=== PATIENT | female | born 1945 | race Hispanic/Latino ===

== ENCOUNTER → 2019-01-16 | Outpatient (CLI) | payer OTHER ==
[~2019-01-16] MED LIST: LEVEMIR100 UNIT/2; NOVOLOG100 UNIT/2; Z.0.AMARYL2 MG; Z.0.GLUCOPHAGE1000 M; Z.0.PRAVASTATIN SOD4
--- NOTE | 2019-01-22 12:53 | Diagnostic Imaging Report ---
#[id number] - MGSCRBIL #BILATERAL DIGITAL SCREENING MAMMOGRAM WITH CAD: 01/16/2019 CLINICAL: Routine screening. Comparison is made to exam dated: 08/25/2016 mammogram - [facility]. There are scattered fibroglandular elements in both breasts. Current study was also evaluated with a Computer Aided Detection (CAD) system. There are benign vascular calcifications and calcifications in both breasts. No significant masses, calcifications, or other findings are seen in either breast. There has been no significant interval change. IMPRESSION: BENIGN There is no mammographic evidence of malignancy. A 1 year screening mammogram is recommended. The patient will be notified by letter of the results. ADAIR WEBB M.D., mc/jennifer:01/22/2019 10:56:31 Waste Treatment Operator: Lory VICTORIA(Asha)(Lynnette), [facility] letter sent: Normal Exam Mammogram BI-RADS: 2 Benign
== END ==
LOC: MAMMO 09:21
PROVIDERS: ATTEND Internal Medicine
DX: Z12.31 Encounter for screening mammogram for malignant neoplasm of breast (principal)
CPT/HCPCS: 77067

== ENCOUNTER 2019-01-22 13:02 | Emergency (ER) | payer MEDICARE, OTHER ==
[~2019-01-22] VITALS: Ht 157.5 cm; Wt 72.6 kg
--- OUTSIDE RECORDS SUMMARY | 2019-01-22 13:04 | XMS REPORT ---
Author Author [facility] Address Unknown Phone Unavailable Care Team Providers Care Progress Clerk Name Role Phone Lynnette WALDRON Unavailable Unavailable Problems This patient has no known problems. Allergies, Adverse Reactions, Alerts This patient has no known allergies or adverse reactions. Medications This patient has no known medications. Results Test Description Test Time Test Comments Text Results Atomic Results Result Comments MAMMOGRAPHY DIGITAL SCR BILAT 2019-01-16 10:29:00 [place] [address] Patient Name: PIPPA MORA MR #: [id number] : 1945 Age/Sex: 73/F Req #: [id number] [facility] Physician: Ordered by: ERIK WALDRON MD Report #: [id number] Location: MAMMO Room/Bed: Procedure: [id number] MG/MAMMOGRAPHY DIGITAL SCR BILAT Exam Date: 01/16/19 Exam Time: 0936 REPORT STATUS: Signed #[id number] - MGSCRBIL #BILATERAL DIGITAL SCREENING MAMMOGRAM WITH CAD: 01/16/2019 CLINICAL: Routine screening. Comparison is made to exam dated: 08/25/2016 mammogram - [facility]. There are scattered fibroglandular elements in both breasts. Current study was also evaluated with a Computer Aided Detection (CAD) system. There are benign vascular calcifications and calcifications in both breasts. No significant masses, calcifications, or other findings are seen in either breast. There has been no significant interval change. IMPRESSION: BENIGN There is no mammographic evidence of malignancy. A 1 year screening mammogram is recommended. The patient will be notified by letter of the results. ADAIR WEBB M.D., mc/laney:01/22/2019 10:56:31 Tooling Supervisor: Lory VICTORIA(Asha)(Lynnette), [facility] letter sent: Normal Exam Mammogram BI-RADS: 2 Benign Dictated By: LEANDRO WEBB MD 1056 Transcribed By: LANEY on 01/22/19 1056 COPY TO: ERIK WALDRON MD
[2019-01-22] MEDS ORDERED: SODIUM CHLORIDE 0.9% 1000ML 1,000 ML IV STA (14:09)
[2019-01-22] MEDS ORDERED: ASPIRIN 81 MG CHEW TAB PO ONE (14:15)
[2019-01-22 14:42] LABS: BASOPHILS % 0.3 % (0.0-1.0); EOSINOPHILS # (AUTO) 0.1 (0.0-0.4); EOSINOPHILS % 1.8 % (0.0-6.0); HEMOGLOBIN 12.3 g/dL (12.0-16.0); LYMPHOCYTES # (AUTO) 2.1 (1.0-3.2); LYMPHOCYTES % 30.7 % (18.0-39.1); MEAN CORPUSCULAR HEMOGLOBIN 30.8 pg (28-32); MEAN CORPUSCULAR HGB CONC 33.2 g/dL (31-35); MEAN CORPUSCULAR VOLUME 92.5 fL (81-99); MONOCYTES # (AUTO) 0.5 (0.2-0.8); MONOCYTES % 6.9 % (4.4-11.3); NEUTROPHILS # (AUTO) 4.1 (2.1-6.9); PLATELET COUNT 273 x10e3/uL (140-360); RED CELL DISTRIBUTION WIDTH 13.2 % (11.7-14.4)
[2019-01-22 14:45] LABS: BILIRUBIN,URINE NEGATIVE (NEGATIVE); CLARITY,URINE SL CLOUDY (CLEAR); COLOR,URINE YELLOW (YELLOW); KETONES,URINE NEGATIVE (NEGATIVE); LEUKOCYTE ESTERASE ,URINE NEGATIVE (NEGATIVE); NITRITE,URINE NEGATIVE (NEGATIVE); PROTEIN,URINE DIPSTICK NEGATIVE (NEGATIVE); URINE UROBILINOGEN 1 mg/dL (0.2 - 1)
[2019-01-22 14:53] LABS: EPITHELIAL CELLS,URINE FEW /LPF
[2019-01-22 14:57] LABS: INR 0.88; PROTHROMBIN TIME 12.4 seconds (11.9-14.5)
[2019-01-22 14:58] LABS: PARTIAL THROMBOPLASTIN TIME 28.9 seconds (23.8-35.5)
[2019-01-22 15:03] LABS: ANION GAP 11.7 mmol/L (8-16); BLOOD UREA NITROGEN 16 mg/dL (7-26); BUN/CREATININE RATIO 16 (6-25); CALCIUM 9.4 mg/dL (8.4-10.2); CARBON DIOXIDE 28 mmol/L (22-29); CHLORIDE 103 mmol/L (98-107); CREATINE KINASE 145 IU/L (29-168); CREATININE, SERUM 0.99 mg/dL (0.57-1.11); EST GLOMERULAR FILTRATION RATE 55 ML/MIN (60-); GLUCOSE 224 mg/dL (74-118); POTASSIUM 3.7 mmol/L (3.5-5.1); SODIUM 139 mmol/L (136-145)
[2019-01-22 15:23] LABS: THYROID STIMULATING HORMONE 2.283 uIU/mL (0.350-4.940)
--- NOTE | 2019-01-22 15:52 | Diagnostic Imaging Report ---
Chest, 1 view, 01/22/2019. History: Shortness of breath. Comparison: None available. Findings: The cardiomediastinal silhouette and pulmonary vasculature are within normal limits for a portable exam. There is no focal consolidation or pleural effusion. Degenerative changes are present in the right shoulder. There are no acute osseous or soft tissue abnormalities. Impression: No acute cardiopulmonary abnormality. Signed by: Jayant Aviles on 01/22/2019 3:49 PM
--- NOTE | 2019-01-22 17:34 | Diagnostic Imaging Report ---
EXAMINATION: Head CT HISTORY: Ataxia, paresis for the last 3 days COMPARISON: Head CT 12/07/2010 TECHNIQUE: Multidetector axial images were obtained without contrast from the foramen magnum to the vertex . The images were reconstructed using brain and bone algorithms. Thin section brain images were reformatted into coronal and sagittal planes. Image quality: Motion/streaking artifact limits the evaluation of the skull base and posterior cranial fossa. Dose modulation, iterative reconstruction, and/or weight based adjustment of the mA/kV was utilized to reduce the radiation dose to as low as reasonably achievable. FINDINGS: Parenchyma: 1. Few scattered white matter hypodensities, most likely nonspecific chronic microvascular ischemic changes. 2. No mass or hemorrhage. No CT evidence of acute territorial vascular insult. Extra-axial spaces:No abnormal density. No extra-axial fluid collections Brain volume: Normal for age. Ventricles: No hydrocephalus or displacement. Arteries: No density suggestive of thrombus. Dural sinuses: No abnormal density. Extra-axial spaces: No abnormal density. Foramen magnum: No mass, Chiari malformation, or basilar invagination. Sella: Enlarged, partially empty, mostly CSF filled Paranasal/mastoid sinuses: Imaged portions unremarkable. Skull/Scalp: Diffuse heterogeneous bone marrow density which may related to osteopenia. IMPRESSION: 1. No acute intracranial hemorrhage or cortical infarcts. 2. Mild chronic microvascular ischemic changes Signed by: Dr. Kristen Whitt M.D. on 01/22/2019 5:30 PM
[2019-01-22 19:01] VITALS: BP 130/69
== END 2019-01-22 19:10 | disposition home or self-care (01) ==
LOC: ER 13:02
DX: R53.1 Weakness (principal); H81.13 Benign paroxysmal vertigo, bilateral; R26.2 Difficulty in walking, not elsewhere classified; I10 Essential (primary) hypertension; E11.65 Type 2 diabetes mellitus with hyperglycemia; Z86.73 Personal history of transient ischemic attack (TIA), and cerebral infarction without residual deficits
CPT/HCPCS: 36415; 70450; 71045; 80048; 81001; 82550; 82553; 82948; 84443; 84484; 85025; 85610; 85730; 87086; 93005; 99284; J7030

== ENCOUNTER 2019-07-17 13:35 | Observation (INO) | payer MEDICARE ==
[~2019-07-17] VITALS: Ht 157.5 cm; Wt 72.6 kg
[2019-07-17] MEDS ORDERED: DEXTROSE 50% SYRINGE 50 ML IV STA (15:03)
[2019-07-17 15:37] LABS: BASOPHILS % 0.4 % (0.0-1.0); EOSINOPHILS # (AUTO) 0.1 (0.0-0.4); EOSINOPHILS % 1.8 % (0.0-6.0); HEMATOCRIT 39.4 % (34.2-44.1); LYMPHOCYTES # (AUTO) 2.4 (1.0-3.2); LYMPHOCYTES % 33.1 % (18.0-39.1); MONOCYTES # (AUTO) 0.5 (0.2-0.8); MONOCYTES % 7.4 % (4.4-11.3); NEUTROPHILS # (AUTO) 4.2 (2.1-6.9); NEUTROPHILS % 57.2 % (38.7-80.0); PLATELET COUNT 256 x10e3/uL (140-360); RED BLOOD COUNT 4.19 x10e6/uL (3.6-5.1); RED CELL DISTRIBUTION WIDTH 13.3 % (11.7-14.4)
[2019-07-17 15:47] LABS: BILIRUBIN,URINE NEGATIVE (NEGATIVE); CLARITY,URINE SL CLOUDY (CLEAR); COLOR,URINE YELLOW (YELLOW); KETONES,URINE NEGATIVE (NEGATIVE); LEUKOCYTE ESTERASE ,URINE TRACE (NEGATIVE); NITRITE,URINE POSITIVE (NEGATIVE); PROTEIN,URINE DIPSTICK NEGATIVE (NEGATIVE); URINE UROBILINOGEN 0.2 mg/dL (0.2 - 1)
--- NOTE | 2019-07-17 15:47 | Diagnostic Imaging Report ---
EXAMINATION: CHEST SINGLE (PORTABLE) INDICATION: Shortness of breath COMPARISON: None FINDINGS: LINES/TUBES:None LUNGS:The lungs are moderately inflated. No focal consolidation or pulmonary edema. Mild bibasilar subsegmental atelectasis. PLEURA:No pleural effusion or pneumothorax. MEDIASTINUM:The cardiomediastinal silhouette appears normal in size and shape. BONES/SOFT TISSUES:No acute osseous injury. ABDOMEN:No free air under the diaphragm. IMPRESSION: Mild bibasilar subsegmental atelectasis. No focal pneumonia or pulmonary edema. Signed by: Og Stiles MD on 07/17/2019 3:44 PM
[2019-07-17 15:51] LABS: INR 0.85; PROTHROMBIN TIME 12.1 seconds (11.9-14.5)
[2019-07-17 15:52] LABS: PARTIAL THROMBOPLASTIN TIME 28.1 seconds (23.8-35.5)
[2019-07-17 15:57] LABS: ALANINE AMINOTRANSFERASE 18 IU/L (0-55); ALBUMIN 3.9 g/dL (3.5-5.0); ALBUMIN/GLOBULIN RATIO 1.1 (0.8-2.0); ALKALINE PHOSPHATASE 83 IU/L (40-150); ANION GAP 13.8 mmol/L (8-16); BLOOD UREA NITROGEN 14 mg/dL (7-26); BUN/CREATININE RATIO 20 (6-25); CALCIUM 9.3 mg/dL (8.4-10.2); CARBON DIOXIDE 27 mmol/L (22-29); CHLORIDE 104 mmol/L (98-107); CREATINE KINASE 141 IU/L (29-168); CREATININE, SERUM 0.69 mg/dL (0.57-1.11); EST GLOMERULAR FILTRATION RATE > 60 ML/MIN (60-); POTASSIUM 3.8 mmol/L (3.5-5.1); SODIUM 141 mmol/L (136-145)
[2019-07-17 15:59] LABS: GLUCOSE 55 mg/dL (74-118)
--- NOTE | 2019-07-17 16:00 | NUR ---
Received call from Lab: Critical serum glucose of 55. Dr. Barr made aware. Treatment already in progress.
[2019-07-17 16:04] LABS: BACTERIA,URINE MANY /HPF; RBC,URINE 0-5 /HPF (0-5)
[2019-07-17] MEDS ORDERED: DEXTROSE 50% SYRINGE 50 ML IV PRN (16:45)
[2019-07-17] MEDS ORDERED: DEXTROSE 5%/0.9% SOD CHL 1,000 ML IV ONE (16:45)
[2019-07-17] MEDS: CEFTRIAXONE SOD 1 GM/NS 50 ML 50 ML IV SCH (16:51)
[2019-07-17] MEDS ORDERED: INSULIN ASPART U SCH (18:15)
[2019-07-17 18:22] VITALS: BP 164/75
--- NOTE | 2019-07-17 19:30 | NUR ---
Patient off unit via wheelchair to radiology for cervical x-ray. Family at the bedside.
[2019-07-17 19:55] VITALS: BP 164/75
[2019-07-17 20:00] VITALS: BP 166/73
--- NOTE | 2019-07-17 20:00 | Diagnostic Imaging Report ---
Cervical Spine, 5 views including obliques HISTORY: Pain COMPARISON: None available. FINDINGS: Limited sensitivity for detection of subtle fractures and ligamentous abnormalities. Diffusely decreased mineralization of the osseous structures limits bone detail. On the lateral view, the cervical spine is visualized from the skull base to the inferior aspect of C7. Focal kyphosis at C5-6. No acute displaced fracture is identified involving the visualized cervical spine. Disc Spaces and Uncovertebral Joints: Severe degenerative changes at C5-6. Facets: Unremarkable. IMPRESSION: Chronic appearing kyphosis at C5-6 with severe degenerative disc and uncovertebral changes, results in bilateral neural foraminal osseous encroachment. Acute on chronic insufficiency fracture deformity may be a consideration in the appropriate setting. Signed by: Dr. Collins Martel D.O., M.M.M. on 07/17/2019 7:57 PM
[2019-07-17] MEDS ORDERED: ATORVASTATIN 20 MG TAB PO SCH (21:00)
[2019-07-17] MEDS ORDERED: INSULIN GLARGINE 100 UNITS/ML VIAL SQ SCH (21:00)
[2019-07-17] MEDS ORDERED: INSULIN DETEMIR U SCH (21:00)
[2019-07-17] MEDS: AMOXICILLIN/CLAVULANATE K 875 MG TAB PO SCH (21:23)
--- NOTE | 2019-07-17 23:08 | NUR ---
Patient ambulating in room without any complaints. Spouse at bedside. Bedtime snack given.
[2019-07-18] VITALS: BP 134/69
--- NOTE | 2019-07-18 01:09 | History and Physical ---
This is a 73-year-old female patient presented with a complaint of right-sided neck pain. HISTORY OF PRESENT ILLNESS: Ms. Tess Estrella is a 73-year-old female patient with history of diabetes mellitus, presented to the emergency room with a complaint of right-sided neck pain and arm pain. The patient was feeling uncomfortable. In the emergency room, the patient is a poor historian, not able to give much history with the patient's blood sugar was low in the 50s and she was feeling weak and so the patient was subsequently admitted. PAST MEDICAL HISTORY: The patient has a history of diabetes mellitus, hypertension, hyperlipidemia, and arthritis. Previous history of CVA. PAST SURGICAL HISTORY: The patient had hysterectomy and . REVIEW OF SYSTEMS: A detailed review of systems has been done and multisystem examination has been done, and as per the history of present illness. SOCIAL HISTORY: Denies smoking. Denies using alcohol. FAMILY HISTORY: Diabetes mellitus, hypertension. PHYSICAL EXAMINATION: GENERAL: She is an elderly female patient, lying in bed, not in acute distress. The patient is anxious. VITAL SIGNS: Temperature 98, pulse rate 88, respiration rate 20, blood pressure 110/70. HEENT: Normocephalic and atraumatic. NECK: No JVD. No lymphadenopathy. Right-sided neck muscle is tight. LUNGS: Bilateral equal fair air entry. No rales. No rhonchi. HEART: S1, S2. Regular. No murmur. No gallop. ABDOMEN: Soft. Bowel sounds present. NEUROLOGIC: No focal neurological deficit. ADMITTING IMPRESSION/DIAGNOSES: Hypoglycemia, while the patient is on sulfonylurea. Neck pain with cervical spondylosis, hypertension, and diabetes mellitus. PLAN: The patient will be admitted under observation. The patient will be given IV D5NS, and we will monitor the blood sugar. We will do the x-ray of her neck and give her meloxicam and Lidoderm patch for the neck pain. MD RADHA Acosta/MILAD /[id number]
[2019-07-18] MEDS: CEFTRIAXONE SOD 1 GM/NS 50 ML 50 ML IV SCH (03:55)
[2019-07-18 04:00] VITALS: BP 124/71
[2019-07-18 05:46] LABS: BASOPHILS % 0.3 % (0.0-1.0); EOSINOPHILS # (AUTO) 0.2 (0.0-0.4); EOSINOPHILS % 2.8 % (0.0-6.0); HEMATOCRIT 38.1 % (34.2-44.1); HEMOGLOBIN 12.3 g/dL (12.0-16.0); LYMPHOCYTES # (AUTO) 1.9 (1.0-3.2); LYMPHOCYTES % 28.4 % (18.0-39.1); MEAN CORPUSCULAR HGB CONC 32.3 g/dL (31-35); MONOCYTES # (AUTO) 0.5 (0.2-0.8); MONOCYTES % 7.4 % (4.4-11.3); NEUTROPHILS # (AUTO) 4.1 (2.1-6.9); NEUTROPHILS % 60.8 % (38.7-80.0); PLATELET COUNT 203 x10e3/uL (140-360); RED BLOOD COUNT 3.97 x10e6/uL (3.6-5.1); RED CELL DISTRIBUTION WIDTH 13.2 % (11.7-14.4)
[2019-07-18 07:14] LABS: ANISOCYTOSIS SLIGHT; POIKILOCYTOSIS SLIGHT
[2019-07-18 07:15] LABS: OVALOCYTES FEW
[2019-07-18 07:27] LABS: ALANINE AMINOTRANSFERASE 18 IU/L (0-55); ALBUMIN 3.5 g/dL (3.5-5.0); ALKALINE PHOSPHATASE 77 IU/L (40-150); ANION GAP 11.3 mmol/L (8-16); BLOOD UREA NITROGEN 14 mg/dL (7-26); BUN/CREATININE RATIO 22 (6-25); CALCIUM 9.1 mg/dL (8.4-10.2); CARBON DIOXIDE 26 mmol/L (22-29); CHLORIDE 106 mmol/L (98-107); CREATININE, SERUM 0.64 mg/dL (0.57-1.11); EST GLOMERULAR FILTRATION RATE > 60 ML/MIN (60-); POTASSIUM 4.3 mmol/L (3.5-5.1); SODIUM 139 mmol/L (136-145)
[2019-07-18 07:29] VITALS: BP 142/80
[2019-07-18 07:34] LABS: GLUCOSE 44 mg/dL (74-118)
[2019-07-18] MEDS ORDERED: INSULIN LISPRO 100 UNIT/1 ML 3ML VIAL SQ SCH (08:00)
[2019-07-18] MEDS: AMOXICILLIN/CLAVULANATE K 875 MG TAB PO SCH (08:13)
[2019-07-18] MEDS ORDERED: MELOXICAM 7.5 MG TAB PO SCH (09:00)
[2019-07-18] MEDS ORDERED: LIDOCAINE 5% PATCH TP SCH (09:00)
[2019-07-18 11:22] VITALS: BP 130/78
--- NOTE | 2019-07-18 18:09 | Discharge Summary ---
This is a 73-year-old female patient of mine, who presented with hypoglycemia and severe neck pain. ADMITTING IMPRESSION/DIAGNOSES: Hypoglycemia in a diabetic patient, urinary tract infection and cervical spondylosis with radiculopathy pain and hypertension. HOSPITAL COURSE SUMMARY: The patient was admitted under observation unit and patient was given IV D5. The patient was also given IV antibiotic ceftriaxone for the UTI and now upon stabilization, the patient would be discharged home with a reducing dose of Soliqua to 30 and stopping glimepiride and the patient was advised to take Soliqua 30 units at nighttime and ReliOn R regular insulin 6 units before each meal. The patient will be given Tylenol with codeine for the pain and continue ibuprofen for her neck pain. Damián Sorensen MD [facility]/MODL /[id number]
== END 2019-07-18 12:30 | disposition home or self-care (01) ==
LOC: ER 13:35 → ERHOLD 16:40 → ER 17:54 → IMCU 18:06
PROVIDERS: ADMIT Internal Medicine; ATTEND Internal Medicine
DX: M47.22 Other spondylosis with radiculopathy, cervical region (principal); E11.649 Type 2 diabetes mellitus with hypoglycemia without coma; N30.90 Cystitis, unspecified without hematuria; I10 Essential (primary) hypertension; E78.5 Hyperlipidemia, unspecified; M19.90 Unspecified osteoarthritis, unspecified site; Z86.73 Personal history of transient ischemic attack (TIA), and cerebral infarction without residual deficits; Z82.49 Family history of ischemic heart disease and other diseases of the circulatory system
CPT/HCPCS: 36415 ×2; 71045; 72050; 80053 ×2; 81001; 82550; 82553; 82948 ×2; 84484; 85025 ×2; 85610; 85730; 87086; 87186; 93005; 99284; G0378 ×2; J0696 ×2; J1815; J7042; J7799 ×2

== ENCOUNTER 2020-12-31 20:25 | Emergency (ER) | payer MEDICARE ==
[~2020-12-31] VITALS: Ht 157.5 cm; Wt 72.6 kg
[2020-12-31] MEDS ORDERED: TETANUS/DIPHTHERIA TOX ADULT 0.5 ML SYR IM ONE (21:15)
[2020-12-31] MEDS ORDERED: TYLENOL # 31 EA PO (22:54)
[2020-12-31] MEDS ORDERED: LIDOCAINE HCL 1% LOCAL INJ 20 ML VIAL INJ ONE (23:00)
[2020-12-31] MEDS ORDERED: CEPHALEXIN 500 MG CAP PO STA (23:02)
[2020-12-31] MEDS ORDERED: CEPHALEXIN 500 MG CAP ONE (23:15)
[2020-12-31] MEDS ORDERED: CEPHALEXIN500 MG PO (23:23)
== END 2020-12-31 23:41 | disposition home or self-care (01) ==
LOC: ER 21:17
DX: S92.535B Nondisplaced fracture of distal phalanx of left lesser toe(s), initial encounter for open fracture (principal); W20.8XXA Other cause of strike by thrown, projected or falling object, initial encounter; Y92.008 Other place in unspecified non-institutional (private) residence as the place of occurrence of the external cause; I10 Essential (primary) hypertension; E11.9 Type 2 diabetes mellitus without complications; E78.5 Hyperlipidemia, unspecified; F32.9 Major depressive disorder, single episode, unspecified; Z85.42 Personal history of malignant neoplasm of other parts of uterus
CPT/HCPCS: 12001; 73630; 90471; 90714; 99284; J2001

== ENCOUNTER 2021-11-11 20:28 | Emergency (ER) | payer MEDICARE ==
[~2021-11-11] VITALS: Ht 157.5 cm; Wt 72.6 kg
[~2021-11-11 20:28] MED LIST changes: +CEPHALEXIN500 MG PO; +TYLENOL # 31 EA PO
[2021-11-11 21:50] LABS: CLARITY,URINE SL CLOUDY (CLEAR); COLOR,URINE YELLOW (YELLOW); KETONES,URINE NEGATIVE (NEGATIVE); LEUKOCYTE ESTERASE ,URINE NEGATIVE (NEGATIVE); NITRITE,URINE NEGATIVE (NEGATIVE); PROTEIN,URINE DIPSTICK TRACE (NEGATIVE); URINE UROBILINOGEN 0.2 mg/dL (0.2 - 1)
[2021-11-11 21:55] LABS: BACTERIA,URINE MANY /HPF; EPITHELIAL CELLS,URINE FEW /LPF; RBC,URINE 21-50 /HPF (0-5)
[2021-11-11] MEDS ORDERED: CEPHALEXIN500 MG PO (23:02)
== END 2021-11-11 23:55 | disposition home or self-care (01) ==
LOC: ER 20:35
DX: N39.0 Urinary tract infection, site not specified (principal); I10 Essential (primary) hypertension; E11.9 Type 2 diabetes mellitus without complications; E78.5 Hyperlipidemia, unspecified; Z85.42 Personal history of malignant neoplasm of other parts of uterus
CPT/HCPCS: 70450; 81001; 99284

== ENCOUNTER 2021-11-12 11:16 | Emergency (ER) | payer MEDICARE ==
[~2021-11-12] VITALS: Ht 157.5 cm; Wt 72.6 kg
[2021-11-12] MEDS ORDERED: SODIUM CHLORIDE 0.9% 1000ML 1,000 ML IV STA (11:43)
[2021-11-12] MEDS ORDERED: AMMONIA AROMATIC INHAL 0.33 ML AMP INH ONE (12:18)
[2021-11-12 12:34] LABS: BASOPHILS % 0.3 % (0.0-1.0); EOSINOPHILS # (AUTO) 0.1 (0.0-0.4); EOSINOPHILS % 0.9 % (0.0-6.0); HEMATOCRIT 44.5 % (34.2-44.1); HEMOGLOBIN 14.8 g/dL (12.0-16.0); LYMPHOCYTES # (AUTO) 1.4 (1.0-3.2); LYMPHOCYTES % 21.6 % (18.0-39.1); MEAN CORPUSCULAR HEMOGLOBIN 31.2 pg (28-32); MEAN CORPUSCULAR HGB CONC 33.3 g/dL (31-35); MEAN CORPUSCULAR VOLUME 93.9 fL (81-99); MONOCYTES # (AUTO) 0.4 (0.2-0.8); MONOCYTES % 6.4 % (4.4-11.3); NEUTROPHILS # (AUTO) 4.6 (2.1-6.9); NEUTROPHILS % 70.3 % (38.7-80.0); PLATELET COUNT 289 x10e3/uL (140-360); RED BLOOD COUNT 4.74 x10e6/uL (3.6-5.1); RED CELL DISTRIBUTION WIDTH 13.1 % (11.7-14.4)
[2021-11-12 12:46] LABS: AMPHETAMINES SCREEN,URINE NEGATIVE (NEGATIVE); BENZODIAZEPINES SCREEN,URINE NEGATIVE (NEGATIVE); PHENCYCLIDINE SCREEN,URINE NEGATIVE (NEGATIVE)
[2021-11-12 12:47] LABS: CLARITY,URINE CLEAR (CLEAR); COLOR,URINE YELLOW (YELLOW); KETONES,URINE NEGATIVE (NEGATIVE); LEUKOCYTE ESTERASE ,URINE NEGATIVE (NEGATIVE); NITRITE,URINE NEGATIVE (NEGATIVE); PROTEIN,URINE DIPSTICK NEGATIVE (NEGATIVE); URINE UROBILINOGEN 0.2 mg/dL (0.2 - 1)
[2021-11-12 12:52] LABS: BACTERIA,URINE FEW /HPF; EPITHELIAL CELLS,URINE FEW /LPF; RBC,URINE 0-5 /HPF (0-5); WBC,URINE (MAN) 0-5 /HPF (0-5)
[2021-11-12 12:53] LABS: ANION GAP 16.4 mmol/L (8-16); CALCIUM 9.7 mg/dL (8.4-10.2); CREATININE, SERUM 0.76 mg/dL (0.57-1.11); MAGNESIUM 1.8 MG/DL (1.3-2.1); POTASSIUM 4.4 mmol/L (3.5-5.1)
[2021-11-12 12:55] LABS: SALICYLATE < 5.0 mg/dL (0-30)
[2021-11-12 12:59] LABS: CREATINE KINASE MB 1.3 ng/mL (0-5.0)
== END 2021-11-12 15:03 | disposition home or self-care (01) ==
LOC: ER 11:32
DX: U07.1 COVID-19 (principal); F41.9 Anxiety disorder, unspecified; F43.9 Reaction to severe stress, unspecified; E11.65 Type 2 diabetes mellitus with hyperglycemia; I10 Essential (primary) hypertension; E78.5 Hyperlipidemia, unspecified; Z85.42 Personal history of malignant neoplasm of other parts of uterus
CPT/HCPCS: 36415; 71045; 80053; 80307; 80320; 80329 ×2; 81001; 82550; 82553; 82948; 83735; 84484; 85025; 87086; 87186; 93005; 99284; J7030; U0002

== ENCOUNTER 2022-02-15 14:55 | Emergency (ER) | payer MEDICARE, OTHER ==
[~2022-02-15] VITALS: Ht 157.5 cm; Wt 72.6 kg
[2022-02-15] MEDS ORDERED: HYDROCODONE/APAP 5MG-325MG TAB ONE (15:14)
[2022-02-15] MEDS ORDERED: HYDROCODONE/APAP 5MG-325MG TAB PO PRN (15:15)
[2022-02-15] MEDS ORDERED: ACETAMINOPHEN-1 EAC4 PEG (16:32)
== END 2022-02-15 17:03 | disposition home or self-care (01) ==
LOC: ER 15:18
DX: S52.591A Other fractures of lower end of right radius, initial encounter for closed fracture (principal); S20.211A Contusion of right front wall of thorax, initial encounter; W01.0XXA Fall on same level from slipping, tripping and stumbling without subsequent striking against object, initial encounter; Y93.01 Activity, walking, marching and hiking; Y92.89 Other specified places as the place of occurrence of the external cause; I10 Essential (primary) hypertension; E11.9 Type 2 diabetes mellitus without complications; E78.5 Hyperlipidemia, unspecified; F41.9 Anxiety disorder, unspecified; Z85.42 Personal history of malignant neoplasm of other parts of uterus
CPT/HCPCS: 71101; 99284

== ENCOUNTER 2022-08-01 20:28 | Emergency (ER) | payer MEDICARE ==
[~2022-08-01] VITALS: Ht 157.5 cm; Wt 72.6 kg
[~2022-08-01 20:28] MED LIST changes: +ACETAMINOPHEN-1 EAC4 PEG
[2022-08-01] MEDS ORDERED: TETRACAINE HCL 0.5% OPTH SOLN 4 ML BTL OP ONE (21:00)
[2022-08-01] MEDS ORDERED: FLUORESCEIN SOD(OPTH) 1 MG STRP OP ONE (21:00)
[2022-08-01] MEDS ORDERED: TOBRAMYCIN SULFA5 ML TOP (21:33)
[2022-08-01] MEDS ORDERED: NAPROXEN375 M1 PO (21:37)
== END 2022-08-01 21:52 | disposition home or self-care (01) ==
LOC: ER 20:44
DX: H57.12 Ocular pain, left eye (principal); S05.02XA Injury of conjunctiva and corneal abrasion without foreign body, left eye, initial encounter; H10.9 Unspecified conjunctivitis; I10 Essential (primary) hypertension; E11.9 Type 2 diabetes mellitus without complications; E78.5 Hyperlipidemia, unspecified; F41.9 Anxiety disorder, unspecified; Z85.42 Personal history of malignant neoplasm of other parts of uterus
CPT/HCPCS: 99283

== ENCOUNTER 2022-12-24 11:52 | Emergency (ER) | payer MEDICARE ==
[~2022-12-24] VITALS: Ht 157.5 cm; Wt 72.6 kg
[~2022-12-24 11:52] MED LIST changes: +NAPROXEN375 M1 PO; +TOBRAMYCIN SULFA5 ML TOP
[2022-12-24] MEDS ORDERED: CLONIDINE HCL 0.1 MG TAB PO ONE (13:00)
[2022-12-24] MEDS ORDERED: ACETAMINOPHEN 325 MG TAB PO ONE (13:00)
[2022-12-24 14:35] VITALS: BP 108/64
== END 2022-12-24 14:20 | disposition home or self-care (01) ==
LOC: ER 11:58
DX: R51.9 Headache, unspecified (principal); I10 Essential (primary) hypertension; E11.9 Type 2 diabetes mellitus without complications; E78.5 Hyperlipidemia, unspecified; F41.9 Anxiety disorder, unspecified; Z85.43 Personal history of malignant neoplasm of ovary
CPT/HCPCS: 70450; 99284

== ENCOUNTER 2024-10-04 13:41 | Emergency (ER) | payer MEDICARE ==
[~2024-10-04] VITALS: Ht 157.5 cm; Wt 72.6 kg
[2024-10-04 14:31] VITALS: PULSE 74; RESP 15; TEMP 97.6
[2024-10-04 17:15] VITALS: BP 140/64; PULSE 75; RESP 16; O2SAT 98
== END 2024-10-04 16:55 | disposition home or self-care (01) ==
LOC: ER 13:54
DX: S00.83XA Contusion of other part of head, initial encounter (principal); S20.224A Contusion of middle back wall of thorax, initial encounter; W01.0XXA Fall on same level from slipping, tripping and stumbling without subsequent striking against object, initial encounter; Y93.01 Activity, walking, marching and hiking; Y92.89 Other specified places as the place of occurrence of the external cause; I10 Essential (primary) hypertension; E11.9 Type 2 diabetes mellitus without complications; E78.5 Hyperlipidemia, unspecified; F41.9 Anxiety disorder, unspecified; F32.A Depression, unspecified; Z85.42 Personal history of malignant neoplasm of other parts of uterus
CPT/HCPCS: 70450; 72128; 99283

== ENCOUNTER 2024-10-13 16:02 | Inpatient (IN) | payer MEDICARE ==
[~2024-10-13] VITALS: Ht 154.9 cm; Wt 57.2 kg
[2024-10-13 16:29] VITALS: TEMP 98
[2024-10-13 16:55] LABS: BASOPHILS % 0.2 % (0.0-1.0); EOSINOPHILS % 0.2 % (0.0-6.0); HEMOGLOBIN 13.2 g/dL (12.0-16.0); LYMPHOCYTES # (AUTO) 0.4 (1.0-3.2); LYMPHOCYTES % 3.1 % (18.0-39.1); MEAN CORPUSCULAR HEMOGLOBIN 31.1 pg (28-32); MEAN CORPUSCULAR HGB CONC 30.7 g/dL (31-35); MEAN CORPUSCULAR VOLUME 101.4 fL (81-99); MONOCYTES # (AUTO) 0.8 (0.2-0.8); MONOCYTES % 5.4 % (4.4-11.3); NEUTROPHILS # (AUTO) 12.7 (2.1-6.9); NEUTROPHILS % 90.9 % (38.7-80.0); PLATELET COUNT 240 x10e3/uL (140-360); RED BLOOD COUNT 4.24 x10e6/uL (3.6-5.1); RED CELL DISTRIBUTION WIDTH 13.2 % (11.7-14.4); WHITE BLOOD COUNT 13.98 x10e3/uL (4.8-10.8)
[2024-10-13 17:06] LABS: BILIRUBIN,URINE SMALL (NEGATIVE); CLARITY,URINE HAZY (CLEAR); COLOR,URINE AMBER (YELLOW); GLUCOSE, URINE >=1000 (NEGATIVE); KETONES,URINE 1+ (NEGATIVE); LEUKOCYTE ESTERASE ,URINE NEGATIVE (NEGATIVE); NITRITE,URINE POSITIVE (NEGATIVE); PH,URINE 5.5 (5 - 7); PROTEIN,URINE DIPSTICK TRACE (NEGATIVE); URINE UROBILINOGEN 2 mg/dL (0.2 - 1)
[2024-10-13 17:09] LABS: WBC,URINE (MAN) 0-5 /HPF (0-5)
[2024-10-13 17:10] LABS: BACTERIA,URINE MANY /HPF; EPITHELIAL CELLS,URINE FEW /LPF; MUCUS,URINE FEW (RARE)
[2024-10-13 17:18] LABS: ALBUMIN 4.2 g/dL (3.5-5.0); ALBUMIN/GLOBULIN RATIO 1.3 (0.8-2.0); ANION GAP 16.2 mmol/L (8-16); BILIRUBIN,TOTAL 1.3 mg/dL (0.2-1.2); CALCIUM 9.2 mg/dL (8.4-10.2); CREATININE, SERUM 0.72 mg/dL (0.57-1.11); TOTAL PROTEIN 7.5 g/dL (6.5-8.1)
[2024-10-13 17:19] LABS: POTASSIUM 3.2 mmol/L (3.5-5.1)
[2024-10-13] MEDS: SODIUM CHLORIDE 0.9% 1000ML 1,000 ML IV SCH ×2 (17:22→22:59)
[2024-10-13] MEDS: DICYCLOMINE HCL 20 MG/2 ML VIAL IM ONE (17:22)
[2024-10-13] MEDS: ONDANSETRON HCL INJ 2MG/ML 2ML 2 MG/ML VIAL IV STA (17:22)
[2024-10-13 17:24] LABS: TROPONIN I 0.051 ng/mL (0-0.300)
[2024-10-13] MEDS ORDERED: IOPAMIDOL 370 MG/ML 100 ML INFUS..BTL INJ ONE (17:30)
[2024-10-13 17:31] LABS: BAND NEUTROPHILS % (MANUAL) 15 %; LYMPHOCYTES % (MANUAL) 8 % (19-48); NEUTROPHILS % (MANUAL) 77 % (40-74); PLATELET ESTIMATE ADEQUATE; PLATELET MORPHOLOGY COMMENT NORMAL
[2024-10-13 17:32] LABS: ANISOCYTOSIS SLIGHT; RBC MORPHOLOGY COMMENT NORMAL
[2024-10-13] MEDS: Morphine 4mg INJECTION 4 MG/ML INJ IV ONE (18:35)
[2024-10-13 20:12] VITALS: RESP 17
[2024-10-13 21:45] VITALS: PULSE 81; RESP 18; O2SAT 94
[2024-10-13 21:54] LABS: CORONAVIRUS COVID-19 AG NEGATIVE (NEGATIVE); INFLUENZA A AG NEGATIVE (NEGATIVE); INFLUENZA B AG NEGATIVE (NEGATIVE)
[2024-10-13 22:10] VITALS: BP 140/62; PULSE 80; RESP 18; TEMP 97.9; O2SAT 95
[2024-10-13 22:38] VITALS: BP 143/70; PULSE 80; RESP 18; TEMP 97.9; O2SAT 94
[2024-10-14] VITALS (9 sets, daily range): BP systolic 138–157; BP diastolic 53–73; PULSE 78–91; RESP 16–19; TEMP 97.5–98.9; O2SAT 94–100
[2024-10-14 06:29] LABS: BASOPHILS # (AUTO) 0.1 (0.0-0.1); BASOPHILS % 0.3 % (0.0-1.0); EOSINOPHILS # (AUTO) 0.1 (0.0-0.4); EOSINOPHILS % 0.5 % (0.0-6.0); HEMATOCRIT 38.7 % (34.2-44.1); HEMOGLOBIN 12.7 g/dL (12.0-16.0); LYMPHOCYTES # (AUTO) 0.3 (1.0-3.2); LYMPHOCYTES % 1.9 % (18.0-39.1); MEAN CORPUSCULAR HEMOGLOBIN 31.4 pg (28-32); MEAN CORPUSCULAR HGB CONC 32.8 g/dL (31-35); MEAN CORPUSCULAR VOLUME 95.6 fL (81-99); MONOCYTES # (AUTO) 0.4 (0.2-0.8); MONOCYTES % 2.5 % (4.4-11.3); NEUTROPHILS # (AUTO) 16.4 (2.1-6.9); NEUTROPHILS % 94.3 % (38.7-80.0); PLATELET COUNT 259 x10e3/uL (140-360); RED BLOOD COUNT 4.05 x10e6/uL (3.6-5.1); RED CELL DISTRIBUTION WIDTH 13.5 % (11.7-14.4); WHITE BLOOD COUNT 17.35 x10e3/uL (4.8-10.8)
[2024-10-14 07:00] LABS: ALBUMIN 3.5 g/dL (3.5-5.0); ALBUMIN/GLOBULIN RATIO 1.2 (0.8-2.0); ANION GAP 17.7 mmol/L (8-16); BILIRUBIN,TOTAL 1.5 mg/dL (0.2-1.2); CALCIUM 8.5 mg/dL (8.4-10.2); CREATININE, SERUM 0.59 mg/dL (0.57-1.11); POTASSIUM 3.7 mmol/L (3.5-5.1); TOTAL PROTEIN 6.5 g/dL (6.5-8.1)
[2024-10-14] MEDS: DEXTROSE 50% SYRINGE 50 ML IV PRN (07:16)
[2024-10-14] MEDS: INSULIN REGULAR, HUMAN 100 UNIT/1 ML SQ SCH (07:30)
[2024-10-14] MEDS ORDERED: HYDRALAZINE HCL 20 MG/ML VIAL IV PRN (08:45)
[2024-10-14] MEDS ORDERED: ATORVASTATIN CA20 MG PO (08:59)
[2024-10-14] MEDS ORDERED: MYRBETRIQ25 MG PO (08:59)
[2024-10-14] MEDS ORDERED: LISINOPRIL-HCT1 EACH PO (08:59)
[2024-10-14] MEDS ORDERED: MIRTAZAPINE15 MG PO (08:59)
[2024-10-14] MEDS ORDERED: GLIPIZIDE ER5 MG PO (09:07)
[2024-10-14] MEDS ORDERED: PANTOPRAZOLE SO40 MG PO (09:07)
[2024-10-14] MEDS ORDERED: IBUPROFEN800 MG PO (09:07)
[2024-10-14] MEDS ORDERED: XDEMVY10 ML OU (09:07)
[2024-10-14] MEDS ORDERED: AMLODIPINE BESYL5 MG PO (09:07)
[2024-10-14] MEDS ORDERED: METFORMIN HCL500 M2 PO (09:07)
[2024-10-14] MEDS ORDERED: JARDIANCE25 MG PO (09:07)
[2024-10-14] MEDS: DEXTROSE 5%/0.9% SOD CHL 1,000 ML IV ONE (11:09)
[2024-10-14] MEDS: LACTATED RINGER'S 1,000 ML INJ SCH (15:54)
[2024-10-14 16:40] LABS: CHOL/HDL RATIO 1.9 (3.0-3.6)
[2024-10-14] MEDS: ACETAMINOPHEN 1000 MG/100 ML IV PRN (19:26)
[2024-10-15] VITALS (9 sets, daily range): BP systolic 125–137; BP diastolic 52–98; PULSE 68–86; RESP 17–21; TEMP 97.3–98.2; O2SAT 96–100
[2024-10-15 06:19] LABS: BASOPHILS % 0.3 % (0.0-1.0); EOSINOPHILS # (AUTO) 0.1 (0.0-0.4); EOSINOPHILS % 0.5 % (0.0-6.0); HEMATOCRIT 36.7 % (34.2-44.1); HEMOGLOBIN 12.2 g/dL (12.0-16.0); LYMPHOCYTES # (AUTO) 0.7 (1.0-3.2); LYMPHOCYTES % 7.6 % (18.0-39.1); MEAN CORPUSCULAR HEMOGLOBIN 32.2 pg (28-32); MEAN CORPUSCULAR HGB CONC 33.2 g/dL (31-35); MEAN CORPUSCULAR VOLUME 96.8 fL (81-99); MONOCYTES # (AUTO) 0.5 (0.2-0.8); MONOCYTES % 5.1 % (4.4-11.3); NEUTROPHILS # (AUTO) 8.4 (2.1-6.9); NEUTROPHILS % 86.2 % (38.7-80.0); PLATELET COUNT 216 x10e3/uL (140-360); RED BLOOD COUNT 3.79 x10e6/uL (3.6-5.1); RED CELL DISTRIBUTION WIDTH 13.9 % (11.7-14.4); WHITE BLOOD COUNT 9.73 x10e3/uL (4.8-10.8)
[2024-10-15 06:46] LABS: ALBUMIN/GLOBULIN RATIO 0.9 (0.8-2.0); ANION GAP 16.3 mmol/L (8-16); CALCIUM 8.7 mg/dL (8.4-10.2); CHOL/HDL RATIO 2.5 (3.0-3.6); CREATININE, SERUM 0.62 mg/dL (0.57-1.11); TOTAL PROTEIN 6.5 g/dL (6.5-8.1)
[2024-10-15 06:47] LABS: POTASSIUM 3.3 mmol/L (3.5-5.1)
[2024-10-15] MEDS ORDERED: DEXTROSE 5%/0.9% SOD CHL 1,000 ML IV SCH (07:00)
[2024-10-15] MEDS: DEXTROSE 5%/0.9% SOD CHL 1,000 ML IV SCH (09:17)
[2024-10-15] MEDS: ONDANSETRON HCL INJ 2MG/ML 2ML 2 MG/ML VIAL IV PRN (17:50)
[2024-10-15] MEDS: Morphine 4mg INJECTION 4 MG/ML INJ IV PRN (17:51)
[2024-10-15] MEDS: SODIUM CHLORIDE FLUSH 10 ML SYR INJ PRN (17:51)
[2024-10-16] VITALS (8 sets, daily range): BP systolic 112–157; BP diastolic 53–76; PULSE 60–83; RESP 18–21; TEMP 97.4–98.3; O2SAT 95–100
[2024-10-16 06:57] LABS: HEMOGLOBIN 10.6 g/dL (12.0-16.0); MEAN CORPUSCULAR HEMOGLOBIN 31.3 pg (28-32); MEAN CORPUSCULAR HGB CONC 33.1 g/dL (31-35); MEAN CORPUSCULAR VOLUME 94.4 fL (81-99); PLATELET COUNT 194 x10e3/uL (140-360); RED BLOOD COUNT 3.39 x10e6/uL (3.6-5.1); RED CELL DISTRIBUTION WIDTH 13.7 % (11.7-14.4); WHITE BLOOD COUNT 5.01 x10e3/uL (4.8-10.8)
[2024-10-16 07:32] LABS: ALBUMIN 2.4 g/dL (3.5-5.0); ALBUMIN/GLOBULIN RATIO 0.9 (0.8-2.0); ANION GAP 10.8 mmol/L (8-16); BILIRUBIN,TOTAL 0.4 mg/dL (0.2-1.2); CALCIUM 7.7 mg/dL (8.4-10.2); CREATININE, SERUM 0.58 mg/dL (0.57-1.11); TOTAL PROTEIN 5.2 g/dL (6.5-8.1)
[2024-10-16 07:33] LABS: POTASSIUM 2.8 mmol/L (3.5-5.1)
[2024-10-16] MEDS ORDERED: MAGNESIUM SULFATE 2GM/50ML IV PRN (08:00)
[2024-10-16 08:43] LABS: MAGNESIUM 1.7 MG/DL (1.3-2.1); PHOSPHORUS 2.5 MG/DL (2.3-4.7)
[2024-10-16] MEDS ORDERED: MAGNESIUM SULFATE 2GM/50ML 50 ML IV PRN (09:15)
[2024-10-16] MEDS: POTASSIUM CHLORIDE 10MEQ EA PO SCH (09:20)
[2024-10-16] MEDS: D5NS/KCL 20MEQ 1,000 ML IV SCH (09:42)
[2024-10-16 12:28] LABS: BAND NEUTROPHILS % (MANUAL) 2 %; EOSINOPHILS % (MANUAL) 1 % (0-7); LYMPHOCYTES % (MANUAL) 16 % (19-48); MONOCYTES % (MANUAL) 1 % (3.4-9.0); NEUTROPHILS % (MANUAL) 80 % (40-74); PLATELET ESTIMATE ADEQUATE; PLATELET MORPHOLOGY COMMENT NORMAL; RBC MORPHOLOGY COMMENT NORMAL
[2024-10-16 16:18] LABS: ANION GAP 11.8 mmol/L (8-16); CALCIUM 8.4 mg/dL (8.4-10.2); CREATININE, SERUM 0.74 mg/dL (0.57-1.11); POTASSIUM 3.8 mmol/L (3.5-5.1)
[2024-10-17] VITALS (8 sets, daily range): BP systolic 123–152; BP diastolic 59–87; PULSE 60–85; RESP 18–21; TEMP 97.8–98.9; O2SAT 94–100
[2024-10-17 06:13] LABS: BASOPHILS % 0.5 % (0.0-1.0); EOSINOPHILS # (AUTO) 0.1 (0.0-0.4); HEMATOCRIT 37.3 % (34.2-44.1); HEMOGLOBIN 11.5 g/dL (12.0-16.0); LYMPHOCYTES # (AUTO) 0.9 (1.0-3.2); LYMPHOCYTES % 21.8 % (18.0-39.1); MEAN CORPUSCULAR HEMOGLOBIN 30.8 pg (28-32); MEAN CORPUSCULAR HGB CONC 30.8 g/dL (31-35); MONOCYTES # (AUTO) 0.4 (0.2-0.8); MONOCYTES % 9.3 % (4.4-11.3); NEUTROPHILS # (AUTO) 2.7 (2.1-6.9); NEUTROPHILS % 66.1 % (38.7-80.0); PLATELET COUNT 210 x10e3/uL (140-360); RED BLOOD COUNT 3.73 x10e6/uL (3.6-5.1); RED CELL DISTRIBUTION WIDTH 13.3 % (11.7-14.4)
[2024-10-17] MEDS ORDERED: ROCURONIUM BROMIDE 1 ML IV ONE (06:38)
[2024-10-17] MEDS ORDERED: FENTANYL CITRATE/PF 100MCG/2 ML INJ ONE (06:38)
[2024-10-17] MEDS ORDERED: PROPOFOL IV EMULSION 10 MG/ML 20 ML VIAL ONE (06:38)
[2024-10-17] MEDS ORDERED: LIDOCAINE HCL 2% LOCAL INJ 5 ML SDV VIAL INJ ONE (06:38)
[2024-10-17 06:50] LABS: ANION GAP 11.7 mmol/L (8-16); CALCIUM 8.7 mg/dL (8.4-10.2); CREATININE, SERUM 0.62 mg/dL (0.57-1.11); POTASSIUM 3.7 mmol/L (3.5-5.1)
[2024-10-17 06:54] LABS: MAGNESIUM 1.9 MG/DL (1.3-2.1)
[2024-10-17] MEDS ORDERED: FAMOTIDINE 20 MG/2 ML VIAL IV ONE (07:04)
[2024-10-17] MEDS ORDERED: ONDANSETRON HCL INJ 2MG/ML 2ML 2 MG/ML VIAL ONE (07:04)
[2024-10-17] MEDS ORDERED: EPHEDRINE SULFATE INJ 50 MG/ML VIAL ONE (07:05)
[2024-10-17] MEDS ORDERED: ACETAMINOPHEN 1000 MG/100 ML 100 ML IV ONE (07:14)
[2024-10-17] MEDS ORDERED: SEVOFLURANE INHAL SOLN 250 ML PEN BTL ONE (07:14)
[2024-10-17 07:18] LABS: PHOSPHORUS 2.2 MG/DL (2.3-4.7)
[2024-10-17] MEDS ORDERED: SUGAMMADEX SODIUM 200 MG/2 ML VIAL IV ONE (07:27)
[2024-10-17] MEDS ORDERED: ONDANSETRON HCL INJ 2MG/ML 2ML 2 MG/ML VIAL IV PRN (07:45)
[2024-10-17] MEDS ORDERED: DEXTROSE 50% SYRINGE 50 ML IV PRN (10:00)
[2024-10-17] MEDS ORDERED: Morphine 4mg INJECTION 4 MG/ML INJ IV PRN (10:00)
[2024-10-17] MEDS: KETOROLAC TROMETHAMINE 30 MG/ML VIAL IV ONE (12:02)
[2024-10-17] MEDS: METOCLOPRAMIDE HCL 10 MG/2ML VIAL IV SCH (12:02)
[2024-10-17] MEDS: INSULIN LISPRO 100 UNIT/1 ML 3ML VIAL SQ SCH (12:18)
[2024-10-17] MEDS: HYDROCODONE/APAP 5MG-325MG TAB PO PRN (20:44)
[2024-10-18 03:06] VITALS: BP 146/62; PULSE 70; RESP 18; TEMP 98.6; O2SAT 95
[2024-10-18 04:57] VITALS: BP 146/62; PULSE 70; RESP 18; TEMP 98.6; O2SAT 95
[2024-10-18 06:39] LABS: BASOPHILS % 0.6 % (0.0-1.0); EOSINOPHILS % 0.6 % (0.0-6.0); HEMATOCRIT 34.6 % (34.2-44.1); HEMOGLOBIN 11.5 g/dL (12.0-16.0); LYMPHOCYTES # (AUTO) 0.9 (1.0-3.2); LYMPHOCYTES % 12.3 % (18.0-39.1); MEAN CORPUSCULAR HEMOGLOBIN 31.1 pg (28-32); MEAN CORPUSCULAR HGB CONC 33.2 g/dL (31-35); MEAN CORPUSCULAR VOLUME 93.5 fL (81-99); MONOCYTES # (AUTO) 0.5 (0.2-0.8); MONOCYTES % 7.5 % (4.4-11.3); NEUTROPHILS # (AUTO) 5.5 (2.1-6.9); NEUTROPHILS % 78.6 % (38.7-80.0); PLATELET COUNT 218 x10e3/uL (140-360); RED CELL DISTRIBUTION WIDTH 13.8 % (11.7-14.4); WHITE BLOOD COUNT 6.97 x10e3/uL (4.8-10.8)
[2024-10-18 07:11] LABS: ALBUMIN 2.7 g/dL (3.5-5.0); ALBUMIN/GLOBULIN RATIO 0.8 (0.8-2.0); ANION GAP 12.7 mmol/L (8-16); BILIRUBIN,TOTAL 0.5 mg/dL (0.2-1.2); CALCIUM 8.4 mg/dL (8.4-10.2); CREATININE, SERUM 0.59 mg/dL (0.57-1.11); POTASSIUM 3.7 mmol/L (3.5-5.1); TOTAL PROTEIN 5.9 g/dL (6.5-8.1)
[2024-10-18 07:42] VITALS: PULSE 78; RESP 18; O2SAT 98
[2024-10-18 08:00] VITALS: BP 142/62; PULSE 67; RESP 19; TEMP 98.4; O2SAT 96
[2024-10-18 09:23] VITALS: BP 142/62; PULSE 67; RESP 19; TEMP 98.4; O2SAT 96
[2024-10-18 13:29] VITALS: PULSE 75; RESP 18; O2SAT 96
[2024-10-18] MEDS ORDERED: ONDANSETRON HCL 4 MG ORAL DISINTEGRATING TAB PO PRN (13:30)
[2024-10-19] MEDS ORDERED: PANTOPRAZOLE SOD 40 MG TABEC PO SCH (07:30)
[2024-10-21] MEDS ORDERED: DEXTROSE 5%/0.9% SOD CHL 1,000 ML IV SCH (23:55)
== END 2024-10-18 13:40 | disposition home or self-care (01) | DRG 417 ==
LOC: ER 16:47 → ERHOLD 21:05 → MED/SURG3 22:30
PROVIDERS: ADMIT Internal Medicine; ATTEND Internal Medicine
PROC: 0FT44ZZ Resection of Gallbladder, Percutaneous Endoscopic Approach (ICD-10-PCS; principal; 2024-10-17 06:52)
DX: K81.0 Acute cholecystitis (principal); K85.10 Biliary acute pancreatitis without necrosis or infection; E11.649 Type 2 diabetes mellitus with hypoglycemia without coma; I10 Essential (primary) hypertension; E86.0 Dehydration; E78.5 Hyperlipidemia, unspecified; F41.9 Anxiety disorder, unspecified; F32.A Depression, unspecified; Z11.52 Encounter for screening for COVID-19; Z79.84 Long term (current) use of oral hypoglycemic drugs; Z85.42 Personal history of malignant neoplasm of other parts of uterus; Z90.710 Acquired absence of both cervix and uterus
CPT/HCPCS: 36415; 74177; 74181; 76705; 80048; 80053; 80061; 81001; 82948; 83690; 83735; 84100; 84484; 85007; 85025; 85027; 88304; 93005; 94799; 99252; 99284; J1885; J2003; J2270; J2405; J2470; J2543; J2765; J7030; J7042; J7799; Q9967